=== PATIENT | male | born 1975 | race Two or more races ===

== ENCOUNTER 2023-07-01 13:01 | Emergency (ER) | payer OTHER ==
[~2023-07-01] VITALS: Ht 175.3 cm; Wt 81.6 kg
[2023-07-01 15:32] LABS: HEMATOCRIT 44.6 % (39.0-48.0); HEMOGLOBIN 15.5 g/dL (13-16.00); MEAN CELL VOLUME 85.4 fL (80.0-100.00); MEAN CORPUSCULAR HEMOGLOBIN 29.7 pg (27.00-32.0); MEAN CORPUSCULAR HGB CONC 34.7 g/dl (32.0-36.0); PLATELET COUNT 305 K/uL (150-450); RED BLOOD COUNT 5.22 M/uL (4.00-6.00); RED CELL DISTRIBUTION WIDTH 12.9 % (11.5-14.5)
[2023-07-01 15:59] LABS: ALBUMIN 4.2 gm/dL (3.4-5.0); BILIRUBIN TOTAL 1.03 mg/dL (0.3-1.2); CREATININE SERUM 1.21 mg/dL (0.70-1.30); GFR 64.28; GLOBULINA 3.8 G/DL (2.4-3.5); POTASSIUM 3.87 mEq/L (3.5-5.1)
== END 2023-07-01 18:18 | disposition home or self-care (01) ==
LOC: ER 13:02
PROVIDERS: General Practice
DX: R07.9 Chest pain, unspecified (principal)